=== PATIENT | female | born 1995 | race Caucasian/White ===

== ENCOUNTER 2016-05-12 13:01 | Emergency (ER) | payer SELFPAY ==
[2016-05-12] MEDS ORDERED: NORMAL SALINE 1,000 ML IV ONE (13:22)
[2016-05-12] MEDS ORDERED: ONDANSETRON HCL/PF 2 MG/ML VIAL IV ONE (13:22)
[2016-05-12] MEDS ORDERED: ONDANSETRON HCL/PF 2 MG/ML VIAL ONE (13:31)
--- NOTE | 2016-05-12 13:42 | ERNOTE ---
Medical Problem HPI - Narrative Date of Service: 05/12/16 - General Chief Complaint: Nausea/Vomiting Time Seen by Provider: 05/12/16 13:18 Source: patient Exam Limitations: no limitations - Immun/Allergies/Home Medications Immunizations: IMMUNIZATION HX Immunizations Up to Date Yes History of Influenza Vaccine No Hx Pneumococcal Vaccination No Allergies/Adverse Reactions: Allergies amoxicillin [Amoxicillin] Allergy (Unknown, Verified 05/12/16 13:10) Penicillins Allergy (Unknown, Verified 05/12/16 13:10) Home Medications: HOME MEDICATIONS Ondansetron [Zofran Odt] 4 mg PO Q6H PRN #20 tab 05/12/16 [Last Taken Unknown] - History of Present History Narrative: Pt. comes in with c/o nausea and vomiting with diarrhea since 0500 this morning. Pt. states that since onset of symptoms pt. has developed a headache and generalized upper quadrant pain. Pt. denies any SOB, CP, cough, fevers, alleviating factors, aggravating factors, although she did take tylenol prior to arrival without relief. Review of Systems - Review of Systems Constitutional: Present: fatigue, malaise. Absent: recent illness, fever, chills, weakness EYE: Present: no symptoms reported ENT: Present: no symptoms reported Respiratory: Present: no symptoms reported. Absent: shortness of breath, cough , wheezing Cardiology: Present: no symptoms reported. Absent: chest pain, palpitations, edema Gastrointestinal/Abdominal: Present: nausea, vomiting, diarrhea, abdominal pain , eating less, drinking less Genitourinary: Present: no symptoms reported. Absent: frequency, pain, dysuria , decreased urinary output Musculoskeletal: Present: no symptoms reported. Absent: back pain, joint pain Skin: Present: no symptoms reported. Absent: rash, change in color Neurological: Present: headache. Absent: dizziness/light-headedness, numbness, tingling All Other Systems: All systems neg except as marked - Patient's Past Medical History Patient History - Medical: No pertinent hx Patient History - Cardiac/Respiratory: Asthma, Bronchitis, Other Patient History - Cancer: No Hx of Cancer Patient History - Surgical Procedures: Other Patient History - Other: None LMP (Calendar): 05/06/14 - Family History Mother Family History - Medical: No pertinent hx Family History - Cardiac/Respiratory: No pertinent hx - Social History Living Situations: home Abuse History: No History of abuse Psych History: No pertinent hx Alcohol Use: none Drug Use: none - Immunizations Immunizations Up to Date: Yes Hx Pneumococcal Vaccination: No History of Influenza Vaccine: No Physical Exam - Physical Exam General Appearance: Present: wd/wn, alert, no apparent distress Eye Exam: Normal inspection: bilateral, PERRL: bilateral, EOMI: bilateral Ears, Nose, Throat: Present: normal ENT inspection, hearing grossly normal, normal pharynx Neck: Present: normal inspection, nontender. Absent: lymphadenopathy (R), lymphadenopathy (L) Respiratory: Present: no respiratory distress, normal breath sounds, no accessory muscle use, chest nontender, lungs clear Cardiovascular/Chest: Present: regular rate, rhythm, no murmur, normal peripheral pulses Gastrointestinal/Abdominal: Present: normal bowel sounds, nondistended, soft, no organomegaly, tenderness - BUQ Back Exam: Present: normal inspection, normal range of motion, no CVA tenderness Extremity Exam: Present: normal inspection, non-tender, no edema, normal range of motion Neurological Exam: Present: alert, oriented, normal mood/affect, no motor/ sensory deficits Skin Exam: Present: warm/dry, pallor. Absent: skin rash ED Progress - Results and Orders Patient's Lab Results:: I have reviewed the patient's lab results. - Vital Signs Patient's Vital Signs:: I have reviewed the patient's vital signs. Vital Signs: Vital Signs 05/12/16 13:07 Temperature 36.5 C Pulse Rate 111 H Respiratory 12 Rate Blood Pressure 105/55 O2 Sat by Pulse 99 Oximetry - Progress/Reassessment Chief Complaint: Nausea/Vomiting Progress:: Improved Departure - Departure Clinical Impression: Gastroenteritis Disposition: Home self-care Condition: Good Instructions: Viral Gastroenteritis, Adult, [id number], Form - Excuse from Work, School, or Physical Activity Additional Instructions: Please increase fluid intake take zofran for nausea and follow up with primary provider if not improved in 2-3 days. Prescriptions: Ondansetron [Zofran Odt] 4 mg PO Q6H PRN #20 tab PRN Reason: Nausea
[2016-05-12 13:47] LABS: Urine Bilirubin Negative (NEGATIVE); Urine Blood Negative /ul (NEGATIVE); Urine Ketone Negative (NEGATIVE); Urine Nitrite Negative (NEGATIVE); Urine Protein Negative (NEGATIVE); Urine Specific Gravity >=1.030 SP.GR. (1.005-1.010); Urine Urobilinogen Normal (NORMAL); Urine pH 5.5 pH (5.0-7.0)
[2016-05-12 14:01] LABS: Urine Appearance Clear; Urine Color Yellow
[2016-05-12 14:02] LABS: Urine Bacteria 3+; Urine RBC TRACE /hpf (0-5); Urine WBC TRACE /hpf (0-5)
[2016-05-12 14:14] LABS: Albumin * 3.7 gm/dl (3.4-5.0); Anion Gap 13.9 mmol/L (6.8-13.8); BUN/Creatinine Ratio 17.9 (9.0-21.6); Bilirubin, Total 0.3 mg/dL (0.0-1.1); Ca. Corrected For Albumin 8.6 mg/dL (8.4-10.2); Calcium * 8.7 mg/dL (7.9-10.9); Carbon Dioxide 23.1 mmol/L (24-32.6); Total Protein 8.2 gm/dL (6.2-8.2)
[2016-05-12 14:21] LABS: Hematocrit 39.6 % (37.0-47.0); Hemoglobin 12.3 gm/dL (12.5-16.0); Mean Cell Volume 84.1 fl (78-100); Mean Corpuscular Hemoglobin 26.1 pg (27-31); Mean Corpuscular Hgb Conc 31.1 g/dl (32-36); Mean Platelet Volume 11.9 fl (6.0-9.5); Neutrophil # 9.8 K/mm3 (1.3-6.0); Neutrophil % 91.5 % (42-75.0); Platelet Count 182 K/mm3 (150-450); Red Blood Count 4.71 M/mm3 (4.2-5.4); Red Cell Distribution Width 12.7 % (11.5-14.0); White Blood Count 10.7 K/mm3 (4.0-10.5)
[2016-05-12 16:21] VITALS: BP 147/64
== END 2016-05-12 15:19 | disposition home or self-care (01) ==
LOC: ER 13:01
DX: K52.9 Noninfective gastroenteritis and colitis, unspecified (principal)